=== PATIENT | male | born 1935 | race Caucasian/White ===

== ENCOUNTER 2019-05-24 09:02 | Inpatient (IN) ==
[2019-05-24] MEDS ORDERED: NS 1,000 ML IV PRN (09:07)
--- NOTE | 2019-05-24 09:30 | Diag Imaging Result Doc PS360 ---
EXAM: CHEST-PORTABLE 05/24/2019 HISTORY: stroke like symptoms TECHNIQUE: AP portable at 0924 COMMENT: There is some questionable atelectasis or fibrosis in the left base. There are no previous studies. Otherwise lungs appear to be clear and the heart and pulmonary vascularity are within normal limits. IMPRESSION: Minimal atelectasis left lower lobe. Electronically signed by Aneesh Mantilla 05/24/2019 9:27 AM
--- NOTE | 2019-05-24 09:31 | Diag Imaging Result Doc PS360 ---
EXAM: CT HEAD W/O CONTRAST HISTORY: stroke like symptoms TECHNIQUE: CT head without contrast COMPARISON: None. FINDINGS: No parenchymal hemorrhage. No epidural or subdural hematoma. No subarachnoid hemorrhage. There is diffuse atrophy and a large left-sided area of encephalomalacia from an old infarct. There are chronic microvascular ischemic changes. There has been a left-sided craniotomy. No mass identified on this noncontrasted exam. No hydrocephalus. No sinus opacification. IMPRESSION: 1.No hemorrhage 2.Atrophy with chronic microvascular ischemic changes and a large area of encephalomalacia on the left. This exam was performed using automated exposure control, adjustment of mA or kV according to patient size, and/or use of iterative reconstruction technique. Electronically signed by Vincenzo Quinn 05/24/2019 9:28 AM
--- NOTE | 2019-05-24 09:52 | PROVIDER DOCUMENTATION ---
HPI-Neurological Disorder - General Chief Complaint: Stroke-Like Symptoms Stated Complaint: stroke like symptoms Time Seen by Provider: 05/24/19 09:06 Source: patient, family Allergies/Adverse Reactions: Patient Allergies Allergy/AdvReac Type Severity Reaction Status Date / Time Penicillins Allergy ANAPHYLAXIS Verified 03/16/19 12:25 hydromorphone [From Dilaudid] AdvReac SHORTNESS Verified 03/16/19 12:25 OF BREATH Home Medications: Home Medication List Medication Instructions Recorded Confirmed Last Taken Type ATORVAstatin [Lipitor] 20 mg PO QHS 03/16/19 05/24/19 03/16/19 History Aspirin 81 mg PO DAILY 03/16/19 05/24/19 03/16/19 History Docusate Sodium [Colace] 200 mg PO DAILY 03/16/19 05/24/19 03/16/19 History Furosemide [Lasix] 20 mg PO DAILY 03/16/19 05/24/19 03/16/19 History Glimepiride 2 mg PO DAILY 03/16/19 05/24/19 03/16/19 History Magnesium 250 mg PO DAILY 03/16/19 05/24/19 03/16/19 History Metformin HCl [Metformin HCl ER] 500 mg PO DAILY 03/16/19 05/24/19 03/16/19 History Niacin [Niacor] 500 mg PO QHS 03/16/19 05/24/19 03/16/19 History Tamsulosin HCl [Flomax] 0.4 mg PO DAILY 03/16/19 05/24/19 03/16/19 History Folic Acid 0.4 mg PO DAILY 05/24/19 05/24/19 Unknown History Sertraline [Zoloft] 25 mg PO DAILY 05/24/19 05/24/19 Unknown History - History of Present Illness-Neuro Nature of Presenting Problem: 84 y/o WM brought to ER for stroke like symptoms that family noticed at home 2 days ago. Family notes that pt has had new lt sided facial drooping with dif ficulty swallowing. Family states that pt normally is able to take his meds and drink without any difficulty but has had to have gatorade spooned to him for the past day. 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 Son also comments that pt lt leg has also not worked well in over 10 years. (H&P limited by pt condition.) Headache Location: denies: frontal, temporal, occipital, parietal, global, other Severity: reports: moderate Onset/Duration: reports: 2 days ago Timing: reports: still present Context: reports: facial droop, other (difficulty swallowing) Character of Altered Mental Status: reports: other (pt is alert to person only and family states that is his baseline.) Any recent trauma/injury?: reports: none Character of Deficits: reports: new weakness, impaired swallowing New weakness or altered sensation location:: reports: left facial Cognitive Baseline: alert but disoriented Gait Baseline: stands for transfers Associated Symptoms: reports: weakness (lt sided facial weakness) Similar Symptoms Previously?: Yes Recently seen or treated by another doctor?: No - Seizure Episode details: denies: unknown duration, unknown number, details of seizure cannot be obtained, details of seizure cannot be verified Review of Systems - Adult - REVIEW OF SYSTEMS - ADULT ROS:: limited per condition Constitutional: reports: no symptoms reported, see HPI Eyes: reports: no symptoms reported, see HPI Ears, Nose, Mouth & Throat: reports: no symptoms reported, see HPI Cardiovascular: reports: no symptoms reported, see HPI Respiratory: reports: no symptoms reported, see HPI Gastrointestinal: reports: no symptoms reported, see HPI Genitourinary: reports: no symptoms reported, see HPI Musculoskeletal: reports: see HPI, other (new rt sided facial weakness) Integumentary: reports: no symptoms reported, see HPI Neurological: reports: no symptoms reported, see HPI Psychiatric: reports: no symptoms reported, see HPI Endocrine: reports: no symptoms reported, see HPI Hematologic/Lymphatic: reports: no symptoms reported, see HPI Allergic/Immunologic: reports: no symptoms reported, see HPI All Other Systems: Reviewed and Negative Past History - Adult - PAST MEDICAL HISTORY-ADULT Review of Records: reports: Nursing Assessment Review, Medications Reviewed, Social history reviewed & non-contributory. Major Childhood Illnesses: reports: denies history Cardiovascular: reports: denies history Respiratory: reports: denies history Gastrointestinal: reports: denies history Obstetrical/Gynecological: reports: denies history Genitourinary: reports: denies history Musculoskeletal: reports: denies history Neurological: reports: dementia Endocrine/Immune: reports: denies history Other Conditions: reports: denies history Physical Exam- Neurological - Physical Exam-Neuro Initial Vital Signs Reviewed: Yes General Appearance: mild distress, lethargic, slow to respond Eye Exam: right eye: normal inspection, PERRL, EOMI, left eye: other (pt is blind in lt eye) HENMT: normocephalic/atraumatic, moist mucous membranes, normal ENT inspection Head Injury: no evidence of injury Neck: limited range of motion (chronic) Respiratory: chest non-tender, lungs clear, normal breath sounds, no pleuratic chest pain, no respiratory distress, no accessory muscle use Cardiovascular: normal peripheral pulses, no edema, no gallop, no JVD, no murmur Abdominal Exam: normal bowel sounds, non tender, soft, no organomegaly, no pulsatile mass Lymphatic: no adenopathy Extremity: normal capillary refill Motor/Sensory: other (new lt sided facial weakness) - Glascow Coma Scale Best Eye Response: (4) open spontaneously Best Verbal Response: (2) incomprehsible sounds Best Motor Response: (6) obeys commands Progress - PLAN OF CARE/RESULTS Progress/Plan/Lab Results: Vital Signs - 8 hr 05/24/19 09:30 05/24/19 10:51 Temperature 98.1 F Pulse Rate 100 H 70 Respiratory Rate 21 22 Blood Pressure 202/85 178/76 O2 Sat by Pulse Oximetry 95 96 Laboratory Results - last 24 hr 05/24/19 05/24/19 05/24/19 09:43 09:53 09:53 WBC 8.87 RBC 4.74 Hgb 16.0 Hct 46.9 MCV 98.9 MCH 33.8 H MCHC 34.1 RDW Std Deviation 12.7 Plt Count 184 MPV 9.9 Immature Gran % (Auto) 0.6 H Neut % (Auto) 51.7 Lymph % (Auto) 33.4 [place] % (Auto) 8.8 Eos % (Auto) 5.3 Baso % (Auto) 0.2 Immature Gran # (Auto) 0.05 H Neut # (Auto) 4.59 Lymph # (Auto) 2.96 [place] # (Auto) 0.78 H Eos # (Auto) 0.47 Baso # (Auto) 0.02 PT INR PTT (Actin FS) Sodium 138 Potassium 4.1 Chloride 97 L Carbon Dioxide 23 L Anion Gap 18 BUN 15 Creatinine 1.0 Estimated GFR/1.73 m2 > 60 BUN/Creatinine Ratio 15 Glucose 116 H POC Glucose 112 H Calculated Osmolality 277 Calcium 9.5 Total Bilirubin 0.59 AST 14 ALT 9 L Alkaline Phosphatase 106 Troponin T Total Protein 6.8 Albumin 3.9 Globulin 2.9 Albumin/Globulin Ratio 1.3 Urine Source Urine Color Urine Turbidity Urine pH Ur Specific [place] Urine Protein Ur Glucose (Stick) Ur Ketones (Stick) Urine Blood Urine Nitrite Urine Bilirubin Urobilinogen Dipstick Urine Leukocytes Urine WBC (Auto) Urine RBC (Auto) U Epithel Cells (Auto) Urine Bacteria (Auto) Urine Opiates Screen Ur Oxycodone Screen Ur Methadone, Qual Ur Barbiturates Screen Ur Phencyclidine Scrn Ur Amphetamines Screen U Benzodiazepines Scrn Urine Cocaine Screen U Cannabinoids Screen 05/24/19 05/24/19 05/24/19 09:53 09:53 10:32 WBC RBC Hgb Hct MCV MCH MCHC RDW Std Deviation Plt Count MPV Immature Gran % (Auto) Neut % (Auto) Lymph % (Auto) [place] % (Auto) Eos % (Auto) Baso % (Auto) Immature Gran # (Auto) Neut # (Auto) Lymph # (Auto) [place] # (Auto) Eos # (Auto) Baso # (Auto) PT 12.3 INR 0.91 PTT (Actin FS) 20.4 L Sodium Potassium Chloride Carbon Dioxide Anion Gap BUN Creatinine Estimated GFR/1.73 m2 BUN/Creatinine Ratio Glucose POC Glucose Calculated Osmolality Calcium Total Bilirubin AST ALT Alkaline Phosphatase Troponin T 0.022 Total Protein Albumin Globulin Albumin/Globulin Ratio Urine Source CATH Urine Color YELLOW Urine Turbidity CLEAR Urine pH 6.0 Ur Specific [place] 1.022 Urine Protein NEGATIVE Ur Glucose (Stick) NEGATIVE Ur Ketones (Stick) TRACE A Urine Blood NEGATIVE Urine Nitrite NEGATIVE Urine Bilirubin NEGATIVE Urobilinogen Dipstick NORMAL Urine Leukocytes NEGATIVE Urine WBC (Auto) <10 Urine RBC (Auto) <10 U Epithel Cells (Auto) <10 Urine Bacteria (Auto) NEGATIVE Urine Opiates Screen Ur Oxycodone Screen Ur Methadone, Qual Ur Barbiturates Screen Ur Phencyclidine Scrn Ur Amphetamines Screen U Benzodiazepines Scrn Urine Cocaine Screen U Cannabinoids Screen 05/24/19 10:32 WBC RBC Hgb Hct MCV MCH MCHC RDW Std Deviation Plt Count MPV Immature Gran % (Auto) Neut % (Auto) Lymph % (Auto) [place] % (Auto) Eos % (Auto) Baso % (Auto) Immature Gran # (Auto) Neut # (Auto) Lymph # (Auto) [place] # (Auto) Eos # (Auto) Baso # (Auto) PT INR PTT (Actin FS) Sodium Potassium Chloride Carbon Dioxide Anion Gap BUN Creatinine Estimated GFR/1.73 m2 BUN/Creatinine Ratio Glucose POC Glucose Calculated Osmolality Calcium Total Bilirubin AST ALT Alkaline Phosphatase Troponin T Total Protein Albumin Globulin Albumin/Globulin Ratio Urine Source Urine Color Urine Turbidity Urine pH Ur Specific [place] Urine Protein Ur Glucose (Stick) Ur Ketones (Stick) Urine Blood Urine Nitrite Urine Bilirubin Urobilinogen Dipstick Urine Leukocytes Urine WBC (Auto) Urine RBC (Auto) U Epithel Cells (Auto) Urine Bacteria (Auto) Urine Opiates Screen NONE DETECTED Ur Oxycodone Screen NONE DETECTED Ur Methadone, Qual NONE DETECTED Ur Barbiturates Screen NONE DETECTED Ur Phencyclidine Scrn NONE DETECTED Ur Amphetamines Screen NONE DETECTED U Benzodiazepines Scrn NONE DETECTED Urine Cocaine Screen NONE DETECTED U Cannabinoids Screen NONE DETECTED Orders Category Date Time Status Cardiac Monitoring DIRECTED Care 05/24/19 09:07 Active Finger Stick Blood Sugar (ED) DIRECTED Care 05/24/19 09:07 Active [place] Cath Insertion ORDERED Care 05/24/19 10:21 Active Misc. NRSG Communication Order DIRECTED Care 05/24/19 09:07 Active Oxygen Therapy- ED Nursing DIRECTED Care 05/24/19 09:07 Active Saline Loc NOW Care 05/24/19 09:07 Active Palliative Care Consult [OM.CSS] Routine Cons 05/24/19 11:01 Active CHEST-PORTABLE [RAD] Stat Exams 05/24/19 09:[address] HEAD W/O CONTRAST [CT] Stat Exams 05/24/19 09:03 Completed CBC WITH ELECTRONIC DIFF [HEME] Stat Lab 05/24/19 09:53 Completed COMPREHENSIVE METABOLIC PANEL [CHEM] Stat Lab 05/24/19 09:53 Completed PROTIME WITH INR [COAG] Stat Lab 05/24/19 09:53 Completed PTT [COAG] Stat Lab 05/24/19 09:53 Completed TROPONIN T Stat Lab 05/24/19 09:53 Completed URINALYSIS W/POSS RFLX CULT [URINALYSIS] Stat Lab 05/24/19 10:32 Completed URINE DRUG SCREEN Stat Lab 05/24/19 10:32 Completed 0.9% Sodium Chloride Inj [Ns] 1,000 ml Med 05/24/19 09:07 Active IV 125 mls/hr EKG [EKG] Stat Ther 05/24/19 09:07 Active Discussed IVF with family and they advised that they do want Pt to have IVF. Family is considering DNR order. Result Diagrams: 05/24/19 09:53 05/24/19 09:53 - CONSULTS/PCP/HOSPITALIST Notification #1 *Consult/PCP/Hospitalist*: Jing for Hospitalist Time Discussed: 11:16 Consult Disposition: Will see in ED, Admit Departure - Departure Date of Disposition Decision: 05/24/19 Time of Disposition Decision: 11:17 DIAGNOSIS: Dehydration, CVA (cerebral vascular accident) Disposition: ADMITTED INPATIENT 09 Certified Medical Emergency: Emergent Condition: Fair Referrals and Follow-Ups: Johnny Simeon DO [Primary Care Provider] - - Critical Care Note This patient required my direct & personal management of CC.: No Attestation - Physician/ RAMY Attestation Patient care was provided by Advanced Practice Provider:: No The physician spent face to face time with patient:: Yes Advanced Practice Provider documentation review:: Supervising physician onsite and consulted in the evaluation and care of this patient. The physician did have a face to face encounter with the patient. - NIH Stroke Scale NIH Type: Initial Evaluation (evaluation severely limited due to pt presentation and being blind and old persistant stroke sx.) Level of Consciousness: 0-Alert
[2019-05-24 10:25] LABS: BASO# 0.02 X1000 (0.0-0.2); BASO% 0.2 % (0.0-0.8); EOS# 0.47 X1000 (0.0-0.7); EOS% 5.3 % (0.0-10.0); HEMATOCRIT 46.9 % (42.0-52.0); IMM GRAN# 0.05 X1000 (0.0-0.04); IMM GRAN% 0.6 % (0.0-0.5); LYMPH# 2.96 X1000 (1.2-3.4); LYMPH% 33.4 % (20.5-51.1); MCH 33.8 PG (27-31); MCHC 34.1 g/dL (33-37); MCV 98.9 FL (81-99); MONO# 0.78 X1000 (0.11-0.59); MONO% 8.8 % (1.7-9.3); MPV 9.9 FL (7.4-10.4); NEUT# 4.59 X1000 (1.4-6.5); NEUT% 51.7 % (42.2-75.2); PLT 184 X1000 (130-400); RBC 4.74 XMIL (4.7-6.1); RDW 12.7 % (11.5-14.5); WBC 8.87 X1000 (4.8-10.8)
[2019-05-24 10:34] LABS: INR 0.91; PROTIME 12.3 Seconds (11.0-16.0)
[2019-05-24 10:35] LABS: PTT 20.4 Seconds (22.3-41.8)
[2019-05-24 10:37] LABS: URINE SOURCE CATH
[2019-05-24 10:41] LABS: BILIRUBIN URINE NEGATIVE (NEGATIVE); BLOOD URINE NEGATIVE (NEGATIVE); COLOR YELLOW; GLUCOSE URINE NEGATIVE (NEGATIVE); KETONE URINE TRACE mg/dL (NEGATIVE); LEUKOCYTES URINE NEGATIVE (NEGATIVE); NITRITE URINE NEGATIVE (NEGATIVE); PROTEIN URINE NEGATIVE (NEGATIVE); SP GRAVITY URINE 1.022; TURBIDITY URINE CLEAR (CLEAR); UR EPITHELIAL CELLS <10 /HPF (<10); URINE BACTERIA NEGATIVE /HPF; URINE RBC <10 /HPF (<10); URINE WBC <10 /HPF (<10); UROBILINOGEN URINE NORMAL (NORMAL)
[2019-05-24 10:57] LABS: AGAP 18; ALB/GLOB RATIO 1.3; ALBUMIN 3.9 g/dL (3.5-5.0); ALKALINE PHOSPHATASE 106 U/L (32-122); BUN 15 mg/dL (8-22); CALCIUM 9.5 mg/dL (8.8-10.2); CHLORIDE 97 mmol/L (98-107); COSMO 277; ESTIMATED GFR > 60; GLUCOSE 116 mg/dL (70-104); GOT 14 U/L (10-34); GPT 9 U/L (10-44); POTASSIUM 4.1 mmol/L (3.5-5.1); SODIUM 138 mmol/L (136-145); TCO2 23 mmol/L (25-35); TOTAL BILIRUBIN 0.59 mg/dL (0.20-1.00); TOTAL PROTEIN 6.8 g/dL (6.3-8.3)
[2019-05-24 11:08] LABS: UR AMPHETAMINES QUAL NONE DETECTED (NONE DETECT); UR BARBITUATES QUAL NONE DETECTED (NONE DETECT); UR BENZODIAZEPIN QUAL NONE DETECTED (NONE DETECT); UR CANNABINOIDS QUAL NONE DETECTED (NONE DETECT); UR COCAINE QUAL NONE DETECTED (NONE DETECT); UR METHADONE QUAL NONE DETECTED (NONE DETECT); UR OPIATES QUAL NONE DETECTED (NONE DETECT); UR OXYCODONE QUAL NONE DETECTED (NONE DETECT); UR PCP QUAL NONE DETECTED (NONE DETECT)
--- NOTE | 2019-05-24 11:19 | ED EKG INTERP ---
This chart was entered by Mercedes Yeboah Scribe, acting as scribe for Kiet Carey MD. EKG Interpretation - EKG Time of EKG reading by physician:: 09:43 EKG Read and Signed by:: Kiet Carey EKG Interpretation (*Must complete 3 of following elements*): Abnormal Rate: 70 Rhythm: NSR [place]: normal QRS: other (inferior infarct; anteroseptal infarct) IN Interval: normal ST Wave: non-specific ST changes (consider lateral ischemia) Attestation - Physician/ RAMY Attestation Patient care was provided by Advanced Practice Provider:: No The physician spent face to face time with patient:: Yes Advanced Practice Provider documentation review:: Supervising physician onsite and consulted in the evaluation and care of this patient. The physician did have a face to face encounter with the patient. This chart was documented by the indicated scribe, (Mercedes Yeboah Scribe) and accurately reflects the services I performed and decisions made by me, Kiet Carey MD, as attested by the provider's signature.
[2019-05-24] MEDS ORDERED: TYLENOL PO PRN (11:24)
[2019-05-24] MEDS ORDERED: ZOFRAN IV PRN (11:24)
--- NOTE | 2019-05-24 12:37 | Diag Imaging Result Doc PS360 ---
EXAM: MRI BRAIN W/WO CONTRAST INDICATION: cva COMPARISON: No prior MRI brain is available for comparison. FINDINGS: There has been a prior craniotomy on the left and there are is metallic susceptibility artifact related to the fasteners. There is no evidence of acute infarct. There is extensive encephalomalacia on the left indicating an old left MCA distribution infarct. There are also a few chronic lacunar infarcts in the periventricular white matter on the right. There is extensive T2/FLAIR hyperintensity in the periventricular and subcortical white matter indicating white matter microangiopathy. There is ex vacuo dilatation of the left lateral ventricle as a result of the encephalomalacia. There is no discrete intracranial mass, mass effect, or intracranial hemorrhage. There is wallerian degeneration at the left cerebral peduncle. No abnormal intracranial enhancement is appreciated. 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 There is right frontal sinus mucosal disease. There is a small right mastoid air cell effusion. Aside from the craniotomy defect, surrounding soft tissues and bony structures are essentially unremarkable, otherwise. IMPRESSION: 1.Extensive left hemispheric encephalomalacia, a few periventricular chronic lacunar infarcts on the right, and extensive white matter microangiopathy. 2.No evidence of acute infarct or other definite acute pathology. 3.Other incidental/nonacute findings detailed above. Electronically signed by Serge Laura 05/24/2019 12:34 PM
--- NOTE | 2019-05-24 12:43 | Diag Imaging Result Doc PS360 ---
EXAM: MRA BRAIN W/O CONTRAST INDICATION: cva TECHNIQUE: 3-D [id number] axial images and 3-D MIPS of the eagle of [place] were obtained. COMPARISON: None. FINDINGS: The distal left ICA is completely occluded. There is diminished flow involving the M1 segment of the left MCA. Distal to the left MCA bifurcation, it becomes severely truncated and there is no perceived flow in the distal branches of the left MCA in a region of extensive encephalomalacia. The right ICA and right MCA are widely patent throughout. There is no other evidence of flow-limiting stenosis, vascular malformation, or cerebral aneurysm involving the arteries comprising the eagle of [place] including the anterior and posterior cerebral arteries. The distal vertebral arteries and basilar artery are patent. 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 This is assumed to be chronic as there is extensive encephalomalacia in this distribution. Electronically signed by Serge Laura 05/24/2019 12:41 PM
--- NOTE | 2019-05-24 12:45 | HISTORY AND PHYSICAL ---
HISTORY OF PRESENT ILLNESS: This is an 84-year-old who is followed by Dr. Johnny Simeon and Dr. Abdoul Coombs. He has a history of nephrolithiasis. He had a left ureter stone without evidence of obstruction, and he was admitted for that reason back in 2010. The family has been taking care of him at home without any assistance and doing a good job. They brought him in because he had some facial drooping on the right side and he seemed to be less responsive. PAST MEDICAL HISTORY: 1. Diastolic dysfunction. 2. Hyponatremia, chronic. 3. Chronic renal insufficiency with a baseline creatinine 1.4 to 1.7. 4. Dysphasia. He is aphasic or he has not been able to speak in some time. 5. History of hiatal hernia. 6. History of significant gastroesophageal reflux disease. 7. In addition, he has a history of diabetes. 8. Peripheral neuropathy. 9. Peripheral vascular disease. 10. Left-sided hemiparesis. 11. Hypertension. 12. Dyslipidemia. 13. Elevated homocystine. 14. History of erosive gastritis. 15. Diverticulosis. 16. Coronary artery disease. 17. Benign prostatic hypertrophy. PREVIOUS ADMISSIONS: He has had admissions back on 11/05/2010, 11/09/2010, May 2008 and February 2011. ALLERGIES: To penicillin and Dilaudid. PAST SURGICAL HISTORY: 1. Status post left carotid endarterectomy. 2. Status post cholecystectomy. 3. Multiple angioplasties and cardiac stenting. REVIEW OF SYSTEMS: The have denied review of systems.General: They have not reported any sign of chest pain or palpitations or pain in general. No head pain. No recent fall. Neck: No neck discomfort. No sign of adenopathy. No cough or sputum production or shortness of breath. Gastrointestinal/Genitourinary: No real change in his bowels or his bladder control. Musculoskeletal/Neurologic: He is status post CVA and has had global aphasia. PHYSICAL EXAMINATION: GENERAL: On exam, well developed. VITAL SIGNS: Temperature 98.1 degrees, pulse 70, respirations 22, blood pressure 170/76, O2 saturation 96%. Height 5 feet 10 inches. HEENT: Pupils are equal and round. LUNGS: Clear in all lung francois. CARDIOVASCULAR: Regular rhythm and rate without murmur or S3. ABDOMEN: Soft. SKIN: Warm and dry. LABORATORY DATA: White count 8807, hematocrit 46, platelet count 184,000. Sodium 138, potassium 4.1, chloride 97, BUN 15, creatinine 1, calcium 9.5, AST 14, ALT was 19, alkaline phosphatase 106. Prothrombin time 12.3, INR 0.9, PTT is 20. Urine drug screen negative for opiates, oxycodone, methadone, barbiturates, phencyclidine, amphetamines, benzodiazepines, urine cocaine screen and cannabinoids. Urinalysis unremarkable. Chest x-ray, minimal atelectasis left lower lobe. Head CT without contrast, no hemorrhage, atrophy with chronic microvascular ischemic changes. Large area of encephalomalacia on the left side. MEDICATIONS: His medications at home, he is on Lipitor 20 mg every night at bedtime, aspirin 81 mg a day, Colace 200 mg a day, folic acid 0.4 mg a day, Lasix 20 mg a day, glimepiride 2 mg daily, magnesium 250 mg a day, metformin 500 mg a day, niacin 500 mg every night at bedtime, Zoloft 25 mg a day, Flomax 0.4 mg a day. PLAN: We will discuss with family. He did get an MRI. I do not have the results of those. They sound like they would like to take him home. I think we could add Plavix to his regimen, but it looks like he may have had extension of left-sided CVA. I was going to have palliative care talk to him, and we will see how they want to proceed. cc: Haim Mace MD
[2019-05-24 12:49] LABS: HEMOGLOBIN A1C 5.6 % (4.8-6.0)
[2019-05-24] MEDS: NS 1,000 ML IV SCH (15:48)
--- NOTE | 2019-05-24 15:55 | CONSULTATION ---
DATE OF CONSULTATION: 05/24/2019 HISTORY OF PRESENT ILLNESS: Mr. Cho is 84 years old, and he has longstanding neurologic disability and several subsequent neurologic events. According to attentive family, he presented with intracerebral hemorrhage of some sort in 1977. This required left-sided craniotomy. He is right handed and after this initial event, he was initially unable to communicate with language. With several months of language therapy, he improved to the point that he could say some words and eventually was speaking in limited sentences. He always seemed to be able to understand better than he could express himself. He walked with a limp favoring the right leg. He did not use his right arm well. Family believes that after that event he was able to see well. Several years ago, he became suddenly unable to see well to the right side. Around that time, he had some further workup and there was discovery of carotid stenosis managed with endarterectomy. A few years ago, he became gradually unable to see well in any field of vision. Following that, he has not been able to see well enough to feed himself, and the family has been feeding him for years. He has been managed with a great deal of attention from family. The family says he has not walked in many years. Family reports that he would chew and swallow without difficulty. Family reports he has complained of headache chronically, taking 2 acetaminophen most days chronically. Family reports his speech has gotten more feeble but not definitely dysarthric gradually, not abruptly over the last several months. Family reports he seemed abruptly unable to chew and swallow, unable to swallow his medicines, unable to suck through a straw about 2 days ago. He continued to appear awake and alert during that time. There is past history of hypertension, dyslipidemia, diabetes mellitus. Lab work shows mildly elevated blood sugars. Urine drug screen was all negative. He has been afebrile here. Systolic blood pressure was initially 202, last 181. Initial heart rate was 100, last 77. Brain MRI shows the old left hemisphere encephalomalacia and evidence of old left craniotomy. There are some diffuse white matter changes. There are some small areas in the right hemisphere white matter consistent with old lacunar infarction, but nothing that appears acute. There is no restricted diffusion. Brain MRA shows occlusion of left internal carotid and minimal flow in the proximal left middle cerebral artery. 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 PHYSICAL EXAMINATION: On exam, Mr. Cho is awake, alert. He seems attentive. He did not speak to me despite numerous requests. He raised 2 fingers to my command, but then there was significant perseveration when I asked him to perform other tasks. He used his left arm purposefully. He did not use his right arm. He used his left leg purposefully. Right leg showed withdrawal briskly, but I did not see him use the right leg purposefully. Plantar response is extensor bilaterally. There is bilateral facial weakness. With smile or grimace, there is better motility over the right lower face than the left. He was very inconsistent with communicating his ability to count fingers to test visual field. Tongue is a little bit to the left, but he did not protrude the tongue forcefully. IMPRESSION: 1. Recent onset of difficulty swallowing and sucking from a straw, left facial droop. There is clinical evidence of left facial droop and apparent dysphagia. Family reports this was sudden suggesting acute [employer] event, but imaging does not show new brainstem or right hemisphere infarction. Possibilities include older infarction in the brainstem or nondominant right hemisphere infarction. There is not evidence of new lower motor neuron neuromuscular weakness. 2. Chronic dominant left hemisphere encephalomalacia attributed to initial bleeding event with reported longstanding right hemiparesis and dysphasia. 3. Later onset apparent right hemianopia and apparent discovery of left internal carotid disease managed with endarterectomy. 4. Later onset of more global vision loss, which may have been ophthalmological problem and not cerebrovascular ischemic event. or other primary neurologic event 5. Family reports gradually more feeble voice without definite dysarthria over several months. 6. Multiple studies showing evidence of right carotid occlusion. This is chronic and I do not think requires urgent attention now. PLAN: In light of his longstanding level of disability and dependence, prognosis for significant recovery is not good. Whatever part of his current deficit is due to recent and small infarction, either in brainstem or right hemisphere, would carry a relatively good prognosis for at least some recovery with time. I do not think there is any specific intervention to recommend to make that recovery occur more completely or sooner. I do not have any specific suggestions. I believe family prefers conservative management and I agree with that. I would continue treating his risk factors as you are doing. Thanks for asking Neurology to see Mr. Cho. cc: Ike Curran III, MD MTDJanusz
[2019-05-24] MEDS: HUMULIN R SUBQ SCH (16:23)
--- NOTE | 2019-05-24 19:11 | ECHO REPORT ---
ORDER DATE: 05/24/2019 INDICATION: Cerebrovascular accident. FINDINGS: 1. Right atrium appears normal size at 3.8 cm. 2. Mild tricuspid regurgitation. RV systolic pressure of 29. 3. Normal RV size and systolic function. 4. No significant pulmonic insufficiency. 5. Normal left atrial size with a dimension of 3.6 cm. 6. No mitral prolapse. Trace mitral regurgitation. No mitral stenosis. Moderate mitral annular calcification is noted. 7. Normal LV size, end-diastolic dimension of 5.4 cm. Normal wall thicknesses with a posterior and interventricular septal wall thickness 1.0 cm each. Reduced LV systolic function with an estimated EF of 40%. There does appear to be some akinesis of the anterior septum. In addition, the anterior septum appears hyperechoic consistent with likely old infarct. 8. Aortic valve is calcified with restriction of motion. The peak gradient across valve is 17 with a mean of 10. The valve area by the continuity equation is 2.1 cm2 with a planimetry valve area of 1.2 cm2. This appears most consistent with probable mild aortic stenosis. No insufficiency identified. 9. Aorta appears normal in visualized segments. 10. No pericardial effusion seen. cc: MD Jing Glynn CRNP
[2019-05-24] MEDS ORDERED: NIASPAN PO SCH (21:00)
[2019-05-24] MEDS ORDERED: LIPITOR PO SCH (21:00)
[2019-05-25] MEDS: HUMULIN R SUBQ SCH ×4 (01:29→16:00)
[2019-05-25 06:59] LABS: BASO# 0.02 X1000 (0.0-0.2); BASO% 0.2 % (0.0-0.8); EOS# 0.15 X1000 (0.0-0.7); EOS% 1.3 % (0.0-10.0); HEMATOCRIT 48.9 % (42.0-52.0); HEMOGLOBIN 15.8 g/dL (14.0-18.0); IMM GRAN# 0.03 X1000 (0.0-0.04); IMM GRAN% 0.3 % (0.0-0.5); LYMPH# 2.24 X1000 (1.2-3.4); LYMPH% 19.5 % (20.5-51.1); MCH 32.6 PG (27-31); MCHC 32.3 g/dL (33-37); MCV 100.8 FL (81-99); MONO# 0.89 X1000 (0.11-0.59); MONO% 7.7 % (1.7-9.3); MPV 9.5 FL (7.4-10.4); NEUT# 8.18 X1000 (1.4-6.5); PLT 213 X1000 (130-400); RBC 4.85 XMIL (4.7-6.1); RDW 12.3 % (11.5-14.5); WBC 11.51 X1000 (4.8-10.8)
[2019-05-25 07:14] LABS: AGAP 16; ALBUMIN 3.2 g/dL (3.5-5.0); ALKALINE PHOSPHATASE 90 U/L (32-122); BUN 11 mg/dL (8-22); CALCIUM 8.9 mg/dL (8.8-10.2); CHLORIDE 99 mmol/L (98-107); COSMO 273; CREATININE 0.7 mg/dL (0.7-1.2); ESTIMATED GFR > 60; GLUCOSE 97 mg/dL (70-104); GOT 15 U/L (10-34); GPT 6 U/L (10-44); POTASSIUM 3.7 mmol/L (3.5-5.1); SODIUM 137 mmol/L (136-145); TCO2 22 mmol/L (25-35); TOTAL BILIRUBIN 0.43 mg/dL (0.20-1.00); TOTAL PROTEIN 6.4 g/dL (6.3-8.3)
[2019-05-25] MEDS: LOVENOX SUBQ SCH (08:51)
[2019-05-25] MEDS: ASPIRIN PO SCH (08:52)
[2019-05-25] MEDS ORDERED: ZOLOFT PO SCH (09:00)
[2019-05-25] MEDS ORDERED: FLOMAX PO SCH (09:00)
[2019-05-25] MEDS ORDERED: FOLIC ACID PO SCH (09:00)
[2019-05-25] MEDS ORDERED: COLACE PO SCH (09:00)
[2019-05-25] MEDS ORDERED: MAGNESIUM GLUCONATE PO SCH (09:00)
--- NOTE | 2019-05-25 09:19 | PROGRESS NOTE ---
DATE: 05/25/2019 SUBJECTIVE: His eyes are open and he is responding. He shook my hand with his left hand. Not sure if he can swallow. His mucous membranes are no longer dry, appear moist. Color looks good. He remains afebrile. OBJECTIVE: Vital Signs: Temperature 97.7 degrees, pulse 85, respirations 20, blood pressure 160/104. HEENT: Pupils are equal, round, reactive. Lungs: Clear in all lung francois. Cardiovascular: Regular rhythm and rate without murmur or S3. Abdomen: Soft, nondistended. Extremities: No pedal edema. Urine output is 1900 mL. ASSESSMENT AND PLAN: 1. Recent onset difficulty swallowing sucking from a straw, left facial droop. There is clinical evidence of left facial droop and apparent dysphagia. Dr. Curran is evaluating and suggests he may have had an acute central nervous system event. Imaging does not show new brainstem or right hemisphere infarction, and so possibilities include older infarction in the brainstem or nondominant right hemisphere infarction. 2. He has chronic dominant left hemisphere encephalomalacia attributed to initial bleeding event. Reported long-standing history of right hemiparesis and dysphagia. 3. Right hemianopsia. Apparently discovery of left internal carotid disease managed with endarterectomy. 4. Later onset of more global vision loss which has been an ophthalmologic problem and not cerebrovascular ischemic event. 5. The patient reports more gradual feeble voice without definite dysarthria/arthralgia over the last several months. 6. Multiple studies show evidence of right carotid occlusion and no urgent attention at this point. 7. He has a history of diastolic dysfunction, chronic hyponatremia, chronic renal insufficiency, history of hiatal hernia, history of gastroesophageal reflux disease, peripheral neuropathy, peripheral vascular disease. He has a history of elevated homocystine level, erosive gastritis in the past, coronary artery disease, benign prostatic hypertrophy. REVIEW OF THE ORDERS: On Lipitor 20 mg at bedtime, Niaspan ER 500 mg at bedtime, aspirin 81 mg a day, Colace 200 mg p.o. daily, folic acid 0.4 mg p.o. daily, normal saline 125 mL an hour. I think he also has going at 85 mL an hour. Zoloft 25 mg daily, Flomax 0.4 mg a day. Right now, he is not able to swallow his tablets, so we will get a swallow study and speech evaluation, and I will take him off some of his p.o. medicines until he can swallow. cc: Haim Mace MD
--- NOTE | 2019-05-25 10:02 | PROGRESS NOTE ---
DATE: 05/25/2019 SUBJECTIVE: Attentive family at the bedside reports no significant neurologic change in the last 24 hours. He has continued to be alert and sometimes attentive. Echocardiogram showed no source of embolus. Carotid ultrasound shows evidence of left internal carotid occlusion. Brain MRA showed occlusion of the left internal carotid and minimal flow in the proximal left middle cerebral artery. He continues afebrile. Systolic blood pressures have been 160s-170s in the last 24 hours. Medicines include aspirin 81 mg daily, low-dose Lovenox, acetaminophen as needed for headache without recent dose charted. His pre-admission medicines included atorvastatin and that has been held the last few days. He did not have antihypertensive medication listed prior to admission, but did have furosemide. On exam, he appears to be awake and alert. He has a little bit of leftward head turning and possibly slight left gaze preference. He was briefly attentive to me, but did not speak and did not follow simple commands on brief bedside testing. I do not have any new thoughts or new suggestions from Neurology standpoint today. I agree with the family's recommendation for conservative management. Depending on his clinical course, we might consider repeat imaging later. If there is fluctuating level of alertness, EEG could be considered. I do not think the carotid occlusion requires attention at this late state. Thanks for asking Neurology to see Mr. Cho. cc: MD ELA Anders III
[2019-05-25] MEDS: NS 1,000 ML IV SCH (12:54)
[2019-05-26] MEDS: NS 1,000 ML IV SCH ×4 (00:29→23:38)
[2019-05-26] MEDS: HUMULIN R SUBQ SCH ×5 (00:29→23:04)
[2019-05-26 07:29] LABS: BASO# 0.02 X1000 (0.0-0.2); BASO% 0.2 % (0.0-0.8); EOS# 0.05 X1000 (0.0-0.7); EOS% 0.4 % (0.0-10.0); HEMATOCRIT 48.6 % (42.0-52.0); HEMOGLOBIN 15.9 g/dL (14.0-18.0); IMM GRAN# 0.02 X1000 (0.0-0.04); IMM GRAN% 0.2 % (0.0-0.5); LYMPH# 1.11 X1000 (1.2-3.4); LYMPH% 9.6 % (20.5-51.1); MCH 33.5 PG (27-31); MCHC 32.7 g/dL (33-37); MCV 102.3 FL (81-99); MONO# 0.58 X1000 (0.11-0.59); MPV 9.7 FL (7.4-10.4); NEUT# 9.79 X1000 (1.4-6.5); NEUT% 84.6 % (42.2-75.2); PLT 205 X1000 (130-400); RBC 4.75 XMIL (4.7-6.1); RDW 12.6 % (11.5-14.5); WBC 11.57 X1000 (4.8-10.8)
[2019-05-26 07:35] LABS: ESTIMATED GFR > 60
[2019-05-26 07:46] LABS: AGAP 23; ALB/GLOB RATIO 0.8; ALKALINE PHOSPHATASE 90 U/L (32-122); BUN 9 mg/dL (8-22); CALCIUM 8.8 mg/dL (8.8-10.2); CHLORIDE 97 mmol/L (98-107); COSMO 270; CREATININE 0.7 mg/dL (0.7-1.2); GLUCOSE 114 mg/dL (70-104); GOT 15 U/L (10-34); GPT 6 U/L (10-44); POTASSIUM 3.9 mmol/L (3.5-5.1); SODIUM 135 mmol/L (136-145); TCO2 15 mmol/L (25-35); TOTAL BILIRUBIN 0.45 mg/dL (0.20-1.00); TOTAL PROTEIN 6.6 g/dL (6.3-8.3)
[2019-05-26] MEDS: LOVENOX SUBQ SCH (10:34)
[2019-05-26] MEDS: ASPIRIN PO SCH (10:35)
--- NOTE | 2019-05-26 11:05 | PROGRESS NOTE ---
DATE: 05/26/2019 SUBJECTIVE: Mr. Cho is about the same. He is really not able to swallow much. He is pretty weak. He does wake up a little stronger than when he came in. Question is he does not appear to be able to swallow, even liquids. The family was there. We discussed what they want to do. He has signed a living will, but they have not discussed specifically the area of feeding and whether they want to pursue a PEG tube or not. He remains afebrile. OBJECTIVE: Vital Signs: Temperature 98.3 degrees, pulse 65, respirations 18, blood pressure 187/73. Eyes: Pupils are equal and round. Lungs: Lungs are clear in all lung francois. Cardiovascular exam: Regular rhythm and rate without murmur or S3. Abdomen: Abdomen is soft. Skin: Skin is warm and dry. : Urine output is 1700 mL. ASSESSMENT AND PLAN: 1. Recently difficulty from sucking from a straw and swallowing. Left facial droop. I believe he had a right-sided cerebrovascular accident. He already had a large left cerebrovascular accident, and the question is about his swallowing and nutrition, and whether family wants to pursue percutaneous endoscopic gastrostomy tube or not. 2. Dominant left hemisphere encephalomalacia attributed to initial bleeding event. 3. Right hemianopsia, and he has left internal carotid disease. He had an endarterectomy and it looks like the left side is completely occluded. 4. Later onset of more global vision loss. 5. The patient has reported gradual feeble voice without definite dysarthria or arthralgia over the last several months. 6. Complete occlusion of the left internal carotid artery. Severe truncation and diminished flow in the branches of the left middle cerebral artery. Family is going to discuss what they want to do as far as percutaneous endoscopic gastrostomy placement. LABORATORY DATA: From today, white count 11,570, hematocrit is 48, platelet count 205,000. Sodium 135, potassium 3.9, chloride 97. BUN 9, creatinine 0.7. Blood sugars have been 83, 90 and 104. cc: Haim Mace MD
[2019-05-27] MEDS: HUMULIN R SUBQ SCH ×3 (06:43→16:32)
[2019-05-27 07:11] LABS: BASO# 0.02 X1000 (0.0-0.2); BASO% 0.2 % (0.0-0.8); EOS# 0.24 X1000 (0.0-0.7); EOS% 1.8 % (0.0-10.0); HEMATOCRIT 43.7 % (42.0-52.0); HEMOGLOBIN 14.4 g/dL (14.0-18.0); IMM GRAN# 0.04 X1000 (0.0-0.04); IMM GRAN% 0.3 % (0.0-0.5); LYMPH# 2.18 X1000 (1.2-3.4); LYMPH% 16.5 % (20.5-51.1); MONO# 1.28 X1000 (0.11-0.59); MONO% 9.7 % (1.7-9.3); MPV 9.5 FL (7.4-10.4); NEUT# 9.42 X1000 (1.4-6.5); NEUT% 71.5 % (42.2-75.2); PLT 220 X1000 (130-400); RBC 4.37 XMIL (4.7-6.1); RDW 12.2 % (11.5-14.5); WBC 13.18 X1000 (4.8-10.8)
[2019-05-27 08:14] LABS: AGAP 16; ALB/GLOB RATIO 0.9; ALKALINE PHOSPHATASE 85 U/L (32-122); BUN 11 mg/dL (8-22); CALCIUM 8.9 mg/dL (8.8-10.2); CHLORIDE 100 mmol/L (98-107); COSMO 271; CREATININE 0.7 mg/dL (0.7-1.2); ESTIMATED GFR > 60; GLUCOSE 95 mg/dL (70-104); GOT 12 U/L (10-34); GPT 7 U/L (10-44); POTASSIUM 3.2 mmol/L (3.5-5.1); SODIUM 136 mmol/L (136-145); TCO2 20 mmol/L (25-35); TOTAL BILIRUBIN 0.47 mg/dL (0.20-1.00); TOTAL PROTEIN 6.4 g/dL (6.3-8.3)
--- NOTE | 2019-05-27 08:55 | PROGRESS NOTE ---
DATE: 05/27/2019 SUBJECTIVE: Mr. Cho is comfortable this morning. He is awake. OBJECTIVE: His lungs sound clear. Cardiovascular Examination: Regular rhythm and rate without murmur or S3. Temperature is 98.5 degrees. Abdomen is soft. Skin is warm and dry. Urine output was 1200 mL. ASSESSMENT AND PLAN: 1. Dysphagia, unable to swallow. 2. Right-sided cerebrovascular accident and then large left cerebrovascular accident. Radiographically dominant left hemisphere. 3. Encephalomalacia. 4. Right hemianopia. 5. Left internal carotid disease, 100% stenosis in the left carotid. 6. The question is whether he would be able to swallow and whether they want to pursue percutaneous endoscopic gastrostomy tube. They are going to discuss this as a family. We are going to do another swallow test tomorrow and we will see where we are. Getting normal saline at 85 mL an hour, aspirin 81 mg a day. cc: Haim Mace MD
[2019-05-27] MEDS: LOVENOX SUBQ SCH (10:30)
[2019-05-27] MEDS: NS 1,000 ML IV SCH ×2 (10:31→21:55)
[2019-05-27] MEDS: ASPIRIN PO SCH (17:30)
[2019-05-27] MEDS ORDERED: TYLENOL PR PRN (20:49)
[2019-05-28] MEDS: HUMULIN R SUBQ SCH ×4 (02:35→15:51)
[2019-05-28 07:40] LABS: BASO# 0.02 X1000 (0.0-0.2); BASO% 0.1 % (0.0-0.8); EOS# 0.08 X1000 (0.0-0.7); EOS% 0.6 % (0.0-10.0); HEMATOCRIT 43.9 % (42.0-52.0); HEMOGLOBIN 14.3 g/dL (14.0-18.0); IMM GRAN# 0.04 X1000 (0.0-0.04); IMM GRAN% 0.3 % (0.0-0.5); LYMPH% 11.8 % (20.5-51.1); MCH 32.2 PG (27-31); MCHC 32.6 g/dL (33-37); MCV 98.9 FL (81-99); MONO# 1.35 X1000 (0.11-0.59); MONO% 9.3 % (1.7-9.3); MPV 9.6 FL (7.4-10.4); NEUT# 11.26 X1000 (1.4-6.5); NEUT% 77.9 % (42.2-75.2); PLT 231 X1000 (130-400); RBC 4.44 XMIL (4.7-6.1); RDW 12.1 % (11.5-14.5); WBC 14.45 X1000 (4.8-10.8)
[2019-05-28 08:12] LABS: AGAP 21; ALB/GLOB RATIO 1.2; ALBUMIN 3.2 g/dL (3.5-5.0); ALKALINE PHOSPHATASE 85 U/L (32-122); BUN 11 mg/dL (8-22); CALCIUM 8.6 mg/dL (8.8-10.2); CHLORIDE 101 mmol/L (98-107); COSMO 279; CREATININE 0.6 mg/dL (0.7-1.2); ESTIMATED GFR > 60; GLUCOSE 103 mg/dL (70-104); GOT 12 U/L (10-34); GPT 7 U/L (10-44); POTASSIUM 3.3 mmol/L (3.5-5.1); SODIUM 140 mmol/L (136-145); TCO2 18 mmol/L (25-35); TOTAL BILIRUBIN 0.59 mg/dL (0.20-1.00); TOTAL PROTEIN 5.8 g/dL (6.3-8.3)
[2019-05-28] MEDS: ASPIRIN PO SCH (08:20)
[2019-05-28] MEDS: LOVENOX SUBQ SCH (08:22)
[2019-05-28] MEDS: NS 1,000 ML IV SCH (11:36)
--- NOTE | 2019-05-28 14:47 | Carotid Study ---
DATE: 05/24/2019 PROCEDURE: Bilateral duplex and color flow imaging of the carotid arteries. EQUIPMENT: The [employer] E 9 ultrasound system with a 9 L-D transducer. REFERRING PHYSICIAN: Emergency Department. INDICATION: CVA--stroke. FINDINGS: The velocities in cm/sec of both carotid systems were reviewed. The right ICA/CCA ratio is 1.72, corresponding 2% stenosis of 0 to 39 percent. The left ICA/CCA ratio is 1.18, corresponding to a percent stenosis of 100%. INTERPRETATION: The left internal carotid artery is occluded. There was only mild atherosclerotic disease involving the right carotid system without evidence of a hemodynamically significant lesion on that side. When compared to an MRI of the brain without contrast performed on the same day, it confirms complete occlusion of the left internal carotid artery. cc: MD Jing Nevarez CRNP
[2019-05-28 16:26] VITALS: BP 163/86
--- NOTE | 2019-05-28 17:39 | DISCHARGE SUMMARY ---
ADMISSION DATE: 05/24/2019 DISCHARGE DATE: 05/28/2019 SUBJECTIVE: Mr. Cho is an 84-year-old who presented on 05/24/2019 and hopefully discharged on 05/28/2019, although it may be 05/29/2019. He is a patient Dr. Livan Simeon, 84-year-old, also followed by Dr. Abdoul Coombs. He has a history of nephrolithiasis, left ureteral stone without evidence of obstruction, admitted for that reason back in 2010. Family has been taking care of him at home without any assistance doing a good job and brought him in because he had decreased ability to suck liquids from a straw, decreased awareness and concerned he may have had a neurologic event. PAST MEDICAL HISTORY: 1. Diastolic dysfunction. 2. Hyponatremia, chronic. 3. Chronic renal insufficiency with baseline creatinine 1.4 to 1.7. 4. Dysphagia since his stroke. 5. History of hiatal hernia. 6. History of significant gastroesophageal reflux disease. 7. History of diabetes mellitus type 2. 8. Peripheral neuropathy. 9. Peripheral vascular disease. 10. Left-sided hemiparesis. 11. Hypertension. 12. Dyslipidemia. 13. Elevated homocystine. 14. History of erosive gastritis. 15. Diverticulosis. 16. Coronary artery disease. 17. Benign prostatic hypertrophy. PAST SURGICAL HISTORY: 1. Status post left carotid endarterectomy. 2. Status post cholecystectomy. 3. Multiple angioplasties and cardiac stenting. HOSPITAL COURSE: He was admitted. We planned on getting an MRI, CT of his head without contrast, atrophy, chronic microvascular ischemic changes with large areas of encephalomalacia in the left. No hemorrhage. MRI of the brain showed extensive left hemispheric encephalomalacia. A few periventricular chronic lacunar infarcts on the right and extensive white matter micro encephalopathy. No evidence of acute infarct or definite acute pathology. The patient did appear a little bit dehydrated. We did give him some fluids and he seemed to respond a little bit difficulty still with swallowing. MRA of the brain showed a distal left ICA, severe truncation and diminished flow in the branches of the left MCA distal to bifurcation. This is assumed to be chronic and extensive encephalomalacia in this distribution. He was unable to swallow. We did swallow studies and there were poor. Family was questioned on whether they want to pursue percutaneous gastrostomy and they did not. Dr. Curran from neurology was consulted. Recent onset of difficulty swallowing, sucking from a straw, left facial droop. There is clinical evidence of left facial droop and apparent dysphagia. Family suggests this was a sudden change suggesting acute event, but imaging studies do not show new brainstem or right hemisphere infarction. Possibilities include older infarction in the brainstem or nondominant right hemisphere infarction, but there is no evidence of new lower motor neuron neuromuscular weakness. He has a chronic dominant left hemisphere encephalomalacia attributed to initial bleeding event with reported long-standing right hemiparesis and dysphasia. He had a later onset right hemianopia and apparently discovery of left internal carotid disease managed with endarterectomy, later onset of global vision loss. Family would like to take him home and see if they can get hospice care and so we will see if we can get him home. DISCHARGE MEDICATIONS: He can have Tylenol as needed, aspirin 81 mg a day, and that is really the extent of his medications. cc: Haim Mace MD
== END 2019-05-28 19:32 | disposition hospice, home (50) | DRG 56 ==
LOC: SUPCPDRO → ED 09:02 → 4N 12:32
PROVIDERS: ATTEND Emergency Medicine